=== PATIENT | male | born 1985 | race Caucasian/White ===

== ENCOUNTER 2021-01-24 23:22 | Emergency (ER) | payer OTHER ==
[2021-01-24 23:40] VITALS: BMI 32.5
[2021-01-24] MEDS ORDERED: MIDAZOLAM HCL 2 MG/2 ML SINGLE DOSE VIAL ONE (23:42)
[2021-01-24] MEDS ORDERED: LORazepam 2 MG/ML SDV VIAL IVPUSH ONE (23:42)
[2021-01-24] MEDS ORDERED: LORazepam 2 MG/ML SDV VIAL ONE ×2 (23:44→23:47)
[2021-01-24] MEDS ORDERED: levETIRAcetam 500 MG/5 ML INJECTION VIAL IVPB ONE ×2 (23:45→23:58)
[2021-01-25 00:02] LABS: BASO % 0.3 % (0-2.0); EOS % 0.1 % (0-4.5); HEMATOCRIT 41.9 % (35.4-49); HEMOGLOBIN 14.6 GM/dL (11.7-16.9); LYMPH % 14.1 % (8-40); MCH 33.9 pg (25.7-33.7); MCHC 34.8 g/dl (32.0-35.9); MEAN CELL VOLUME 97.6 fl (80-96); MEAN PLT VOLUME 7.7 fl (7.5-11.1); MONO % 12.5 % (3.8-10.2); PLATELET COUNT 114 K/MM3 (134-434); RDW 13.8 % (11.9-15.9)
[2021-01-25 00:16] LABS: INR 0.98 (0.83-1.09); PROTHROMBIN TIME (PATIENT) 11.9 SEC (9.7-13.0)
[2021-01-25 00:19] LABS: ACTIVATED PTT 22.5 SECONDS (25.2-36.5)
[2021-01-25 00:22] LABS: CALCIUM 8.3 mg/dL (8.5-10.1)
[2021-01-25 00:23] LABS: ALBUMIN 3.6 g/dl (3.4-5.0); BLOOD UREA NITROGEN 16.2 mg/dL (7-18)
[2021-01-25 00:26] VITALS: BP 145/98; PULSE 84; TEMP 98
[2021-01-25 00:26] LABS: CREATININE 1.3 mg/dL (0.55-1.3)
[2021-01-25 00:28] LABS: BILIRUBIN,TOTAL 0.3 mg/dL (0.2-1); TOT PROT 6.6 g/dl (6.4-8.2)
[2021-01-25] MEDS ORDERED: DEXAMETHASONE SOD PHOSPHATE 10 MG/1 ML VIAL IVPUSH ONE (01:13)
[2021-01-25] MEDS ORDERED: DEXAMETHASONE SOD PHOSPHATE 4 MG/1 ML VIAL ONE (01:15)
[2021-01-25] MEDS ORDERED: LORazepam 2 MG/ML SDV VIAL IVPUSH PRN (02:54)
[2021-01-25 03:12] LABS: ANISOCYTOSIS 0; HELMET CELLS 0; HOWELL-JOLLY BODIES 0; MACROCYTOSIS 0; OVALOCYTE 0; PLATELET ESTIMATE NORMAL; ROULEAU 0; SICKELED CELLS 0; TARGET CELLS 0; TEAR DROP CELLS 0; TOXIC GRANULATION 0
== END 2021-01-25 03:00 | disposition short-term general hospital (02) ==
LOC: JER 23:22
PROC: 3E033GC Introduction of Other Therapeutic Substance into Peripheral Vein, Percutaneous Approach (ICD-10-PCS; principal; 2021-01-24)
PROC: 3E033GC Introduction of Other Therapeutic Substance into Peripheral Vein, Percutaneous Approach (ICD-10-PCS; 2021-01-24)
PROC: 3E033NZ Introduction of Analgesics, Hypnotics, Sedatives into Peripheral Vein, Percutaneous Approach (ICD-10-PCS; 2021-01-24)
PROC: 3E033NZ Introduction of Analgesics, Hypnotics, Sedatives into Peripheral Vein, Percutaneous Approach (ICD-10-PCS; 2021-01-24)
DX: G40.89 Other seizures (principal)
CPT/HCPCS: 36415; 70450-TC; 80053; 82962; 85025; 85610; 85730; 86850; 86900; 86901; 93005; 93010; 99291; J1100